=== PATIENT | male | born 1960 | race Caucasian/White ===

== ENCOUNTER → 2020-02-16 | Outpatient (CLI) | payer MEDICARE ==
--- NOTE | 2020-02-16 15:44 | Diagnostic Imaging Report ---
INDICATION: Generalized abdominal pain. COMPARISON: None. FINDINGS: Supine and upright views the abdomen demonstrate nonobstructive small bowel gas pattern. Mild amount of air and stool are seen scattered throughout the colon. No abnormal air-fluid levels or large collection of free intraperitoneal air is seen. No abnormal extraosseous calcifications or radiopaque foreign bodies are identified. Bony structures are age-appropriate. Postsurgical changes of the lumbosacral spine are noted. IMPRESSION: 1. Nonobstructive small bowel gas pattern. Dictated by: Dictated on workstation # [id number]
== END ==
LOC: RAD FS 14:49
PROVIDERS: ATTEND Nurse Practitioner Family
DX: R10.84 Generalized abdominal pain (principal); R10.13 Epigastric pain
CPT/HCPCS: 74019

== ENCOUNTER 2023-03-30 10:38 | Emergency (ER) | payer MEDICARE ==
[~2023-03-30] VITALS: Ht 185 cm; Wt 79.9 kg
[2023-03-30 10:51] VITALS: BP 175/105
[2023-03-30 10:58] LABS: BASOPHILS % (AUTO) 1 % (0-10); EOSINOPHILS # (AUTO) 0.1 10^3/uL (0.0-0.3); EOSINOPHILS % (AUTO) 2 % (0-10); HEMATOCRIT 51 % (40-54); HEMOGLOBIN 17.4 g/dL (13.3-17.7); LYMPHOCYTES % (AUTO) 15 % (12-44); MEAN CORPUSCULAR HEMOGLOBIN 33 pg (25-34); MEAN CORPUSCULAR HGB CONC 34 g/dL (32-36); MEAN CORPUSCULAR VOLUME 97 fL (80-99); MEAN PLATELET VOLUME 9.8 fL (9.0-12.2); MONOCYTES # (AUTO) 0.8 10^3/uL (0.0-1.0); MONOCYTES % (AUTO) 12 % (0-12); NEUTROPHILS # (AUTO) 4.8 10^3/uL (1.8-7.8); NEUTROPHILS % (AUTO) 70 % (42-75); PLATELET COUNT 215 10^3/uL (130-400); WHITE BLOOD COUNT 6.8 10^3/uL (4.3-11.0)
[2023-03-30 10:59] LABS: BILIRUBIN,URINE NEGATIVE (NEGATIVE); CLARITY,URINE CLEAR; COLOR,URINE YELLOW; GLUCOSE, URINE (UA) NEGATIVE (NEGATIVE); KETONES,URINE 1+ (NEGATIVE); LEUKOCYTE ESTERASE ,URINE NEGATIVE (NEGATIVE); NITRITE,URINE NEGATIVE (NEGATIVE); PROTEIN,URINE NEGATIVE (NEGATIVE)
[2023-03-30 11:08] LABS: BACTERIA,URINE NEGATIVE /HPF; SQUAMOUS EPITHELIAL CELL,UR RARE /HPF
--- NOTE | 2023-03-30 11:09 | ED Abdominal Pain ---
General Chief Complaint: Abdominal/GI Problems Stated Complaint: ABD PAIN Nursing Triage Note: Patient has presented to ER with cc of upper left side abd pain for the last 2 weeks and getting worse. He reports some nausea. He has tried TUMS, peptobismol, and aleeve for the pain. Source of Information: Patient, Family () Exam Limitations: No Limitations History of Present Illness Date Seen by Provider: Mar 30, 2023 Time Seen by Provider: 10:47 Initial Comments 63-year-old male patient with history of hypertension and chronic back pain presented POV with his with complaining of abdominal pain. Patient complaining of intermittent episodes of left upper abdominal pain as a sharp pain for the last 2 to 4 weeks that getting constant for the last 1 week and rated his pain 5/10. Patient complaining of nausea without vomiting with anorexia and stated he lost more than 20 pounds since January. Patient denies fever and chills, urinary symptoms, diarrhea and constipation. Patient took Tums and Pepto-Bismol and few Aleve without improvement of his pain. Patient did not seek medical attention for his pain. Patient stated he drinks 6 cans of beer every day for many years and using marijuana for his chronic back pain. Allergies and Home Medications Allergies Coded Allergies: aspirin (Verified Allergy, Unknown, 03/30/23) Patient Home Medication List Home Medication List Reviewed: Yes Hydroxyzine HCl (Hydroxyzine HCl) 25 Mg Tablet, 25 MG PO qhs PRN for anxiety Prescribed by: Amita lind on 03/30/23 1240 Ondansetron (Ondansetron Odt) 4 Mg Tab.rapdis, 4 MG PO TID PRN for NAUSEA-1ST LINE Prescribed by: Amita lind on 03/30/23 1249 Sucralfate (Sucralfate) 1 Gram Tablet, 1 GM PO ACHS Prescribed by: Amita lind on 03/30/23 1240 Review of Systems Review of Systems Constitutional: see HPI EENTM: No Symptoms Reported Respiratory: No Symptoms Reported Cardiovascular: No Symptoms Reported Gastrointestinal: See HPI Genitourinary: No Symptoms Reported Musculoskeletal: no symptoms reported Skin: no symptoms reported Psychiatric/Neurological: No Symptoms Reported Endocrine: No Symptoms Reported Hematologic/Lymphatic: No Symptoms Reported All Other Systems Reviewed Negative Unless Noted: Yes Past Kahocbb-Cipqfw-Bysark Hx Patient Social History Tobacco Use?: No Substance use?: Yes Substance type: Marijuana Substance frequency: Daily Alcohol Use?: Yes Alcohol type: Beer Alcohol Frequency: Daily Physical Exam Vital Signs Vital Signs - First Documented 03/30/23 10:51 Temp 36.1 Pulse 107 Resp 18 B/P (MAP) 175/105 (128) Pulse Ox 97 O2 Delivery Room Air Capillary Refill : Height/Weight/BMI Height: '" Weight: lbs. oz. kg; 23.00 BMI Method: General Appearance: WD/WN, mild distress HEENT: PERRL/EOMI, normal ENT inspection, pharynx normal Neck: non-tender, full range of motion, supple, normal inspection Respiratory: chest non-tender, lungs clear, normal breath sounds, no respiratory distress, no accessory muscle use Cardiovascular: normal peripheral pulses, regular rate, rhythm, no edema, no gallop, no JVD, no murmur Peripheral Pulses: 2+ Carotid (R), 2+ Carotid (L), 2+ Femoral (R), 2+ Femoral (L), 2+ Dorsalis Pedis (R), 2+ Left Dors-Pedis (L), 2+ Radial Pulses (R), 2+ Radial Pulses (L) Gastrointestinal: normal bowel sounds, non tender, soft, no organomegaly, no pulsatile mass, guarding (Left upper quad) Rectal: normal exam Genital/Rectal: normal genital exam Extremities: normal range of motion, non-tender, normal inspection, no pedal edema, no calf tenderness, normal capillary refill, pelvis stable Back: normal inspection, no CVA tenderness Neurologic/Psychiatric: no motor/sensory deficits, alert, normal mood/affect, oriented x 3 Skin: normal color, warm/dry Lymphatic: no adenopathy Progress/Results/Core Measures Results/Orders Lab Results Laboratory Tests Test 03/30/23 10:45 Range/Units White Blood Count 6.8 4.3-11.0 10^3/uL Red Blood Count 5.31 4.30-5.52 10^6/uL Hemoglobin 17.4 13.3-17.7 g/dL Hematocrit 51 40-54 % Mean Corpuscular Volume 97 80-99 fL Mean Corpuscular Hemoglobin 33 25-34 pg Mean Corpuscular Hemoglobin Concent 34 32-36 g/dL Red Cell Distribution Width 12.3 10.0-14.5 % Platelet Count 215 130-400 10^3/uL Mean Platelet Volume 9.8 9.0-12.2 fL Immature Granulocyte % (Auto) 0 % Neutrophils (%) (Auto) 70 42-75 % Lymphocytes (%) (Auto) 15 12-44 % Monocytes (%) (Auto) 12 0-12 % Eosinophils (%) (Auto) 2 0-10 % Basophils (%) (Auto) 1 0-10 % Neutrophils # (Auto) 4.8 1.8-7.8 10^3/uL Lymphocytes # (Auto) 1.0 1.0-4.0 10^3/uL Monocytes # (Auto) 0.8 0.0-1.0 10^3/uL Eosinophils # (Auto) 0.1 0.0-0.3 10^3/uL Basophils # (Auto) 0.0 0.0-0.1 10^3/uL Immature Granulocyte # (Auto) 0.0 0.0-0.1 10^3/uL Urine Color YELLOW Urine Clarity CLEAR Urine pH 6.0 5-9 Urine Specific [place] <=1.005 1.016-1.022 Urine Protein NEGATIVE NEGATIVE Urine Glucose (UA) NEGATIVE NEGATIVE Urine Ketones 1+ H NEGATIVE Urine Nitrite NEGATIVE NEGATIVE Urine Bilirubin NEGATIVE NEGATIVE Urine Urobilinogen 0.2 < = 1.0 MG/DL Urine Leukocyte Esterase NEGATIVE NEGATIVE Urine RBC (Auto) NEGATIVE NEGATIVE Urine RBC NONE /HPF Urine WBC NONE /HPF Urine Squamous Epithelial Cells RARE /HPF Urine Crystals NONE /LPF Urine Bacteria NEGATIVE /HPF Urine Casts NONE /LPF Urine Mucus NEGATIVE /LPF Urine Culture Indicated NO Sodium Level 138 135-145 MMOL/L Potassium Level 4.1 3.6-5.0 MMOL/L Chloride Level 95 L 98-107 MMOL/L Carbon Dioxide Level 21 21-32 MMOL/L Anion Gap 22 H 5-14 MMOL/L Blood Urea Nitrogen 7 7-18 MG/DL Creatinine 0.67 0.60-1.30 MG/DL Estimat Glomerular Filtration Rate 106 BUN/Creatinine Ratio 10 Glucose Level 116 H 70-105 MG/DL Calcium Level 10.1 8.5-10.1 MG/DL Corrected Calcium 8.5-10.1 MG/DL Total Bilirubin 1.8 H 0.1-1.0 MG/DL Aspartate Amino Transf (AST/SGOT) 90 H 5-34 U/L Alanine Aminotransferase (ALT/SGPT) 91 H 0-55 U/L Alkaline Phosphatase 93 40-136 U/L Total Protein 8.1 6.4-8.2 GM/DL Albumin 5.2 H 3.2-4.5 GM/DL Lipase 63 8-78 U/L Urine Opiates Screen NEGATIVE NEGATIVE Urine Oxycodone Screen NEGATIVE NEGATIVE Urine Methadone Screen NEGATIVE NEGATIVE Urine Propoxyphene Screen NEGATIVE NEGATIVE Urine Barbiturates Screen NEGATIVE NEGATIVE Ur Tricyclic Antidepressants Screen NEGATIVE NEGATIVE Urine Phencyclidine Screen NEGATIVE NEGATIVE Urine Amphetamines Screen NEGATIVE NEGATIVE Urine Methamphetamines Screen NEGATIVE NEGATIVE Urine Benzodiazepines Screen NEGATIVE NEGATIVE Urine Cocaine Screen NEGATIVE NEGATIVE Urine Cannabinoids Screen POSITIVE H NEGATIVE Serum Alcohol < 10 <10 MG/DL My Orders Orders - AMITA LIND MD Comprehensive Metabolic Panel (03/30/23 10:50) Lipase (03/30/23 10:50) Ua Culture If Indicated (03/30/23 10:50) Ed Iv/Invasive Line Start (03/30/23 10:50) Cbc With Automated Diff (03/30/23 10:50) Alcohol (03/30/23 10:50) Drug Screen Stat (Urine) (03/30/23 10:50) Ondansetron Injection (Zofran Injectio (03/30/23 11:15) Pantoprazole Injection (Protonix Injecti (03/30/23 11:15) Ct Abdomen/Pelvis W (03/30/23 11:02) Iohexol Injection (Omnipaque 350 Mg/Ml 1 (03/30/23 11:30) Received Contrast (Hold Metformin- Contr (03/30/23 11:30) Ns (Ivpb) (Sodium Chloride 0.9% Ivpb Bag (03/30/23 11:30) Medications Given in ED Current Medications Medications Dose Ordered Sig/Liliana Route Start Time Stop Time Status Last Admin Dose Admin Iohexol 100 ml ONCE ONCE IV 03/30/23 11:30 03/30/23 11:31 DC 03/30/23 11:43 80 ML Ondansetron HCl 4 mg ONCE ONCE IVP 03/30/23 11:15 03/30/23 11:16 DC 03/30/23 11:08 4 MG Pantoprazole 40 mg ONCE ONCE IV 03/30/23 11:15 03/30/23 11:16 DC 03/30/23 11:08 40 MG Sodium Chloride 100 ml ONCE ONCE IV 03/30/23 11:30 03/30/23 11:31 DC 03/30/23 11:43 100 ML Vital Signs/I&O 03/30/23 10:51 Temp 36.1 Pulse 107 Resp 18 B/P (MAP) 175/105 (128) Pulse Ox 97 O2 Delivery Room Air Blood Pressure Mean: 128 Progress Progress Note : Progress Note 63-year-old male patient with history of alcohol abuse and complaining of left upper quadrant pain for several weeks. Patient had unremarkable physical exam except for anxiety and elevation of blood pressure at arrival to ER that gradually decreased. CBC and CMP and lipase and UA and UDS and alcohol level was ordered and reviewed by me and was unremarkable except for mild elevation of liver function test that patient stated he had the same problem previously. CT abdomen pelvis was unremarkable except for gallstones without cholecystitis and distended bladder. Bladder scan showed 200 mL of urine in the bladder. Patient did not have urinary frequency and dysuria and nocturia. Patient had history of back surgery and his distended bladder could be related to his surgery. Patient treated with Zofran and Protonix in ER and did not want to have pain medication. Patient advised to follow-up with primary care physician or Dr. Perdomo for possible EGD for evaluation of peptic ulcer disease and also follow-up for gallstones. Patient advised to avoid of eating greasy food. Patient mentioned that he is eating only once a day and advised to eat frequently and try to quit drinking alcohol. Patient advised to return to ER as needed. Diagnostic Imaging Diagonstic Imaging: CT Plain Films/CT/US/NM/MRI: other (CT abdomen pelvis with IV contrast) Comments CT abdomen pelvis with IV contrast reviewed by me and interpreted by radiologist and showed: [facility] [place] NAME: KENNA GUTIÉRREZ [facility] REC#: [id number] PT STATUS: REG ER : 1960 PHYSICIAN: AMITA LIND MD ADMIT DATE: 03/30/23/ER FS Draft Date of Exam:03/30/23 CT ABDOMEN/PELVIS W INDICATION: Left upper quadrant pain. TECHNIQUE: Multiple contiguous axial images were obtained through the abdomen and pelvis after administration of intravenous contrast. Auto Exposure Controls were utilized during the CT exam to meet ALARA standards for radiation dose reduction. All CT scans use one or more of the following dose optimizing techniques: automated exposure control, MA and/or KvP adjustment based on patient size and exam type or iterative reconstruction. COMPARISON: There is no previous study for comparison. FINDINGS: The visualized portions of the lung bases are clear. There were no pleural fluid collections. There is no free intraperitoneal air. There are postop changes in the lumbar spine with fusion from L4 through S1. The liver shows diffuse fatty infiltration without focal lesion. There are numerous gallstones in the gallbladder. The spleen, adrenals, and pancreas are normal. The kidneys bilaterally show no mass or intrarenal calculi. There is moderate prominence of the renal pelves on both sides without caliectasis. There is no retroperitoneal mass or adenopathy. There is no ascites or overt bowel obstruction. There is marked distention of the urinary bladder. IMPRESSION: Marked distention of the urinary bladder, bladder diameter on the sagittal view was nearly 20 cm. There is moderate prominence of the renal pelves, without caliectasis. There is diffuse fatty infiltration of the liver. There are numerous gallstones in the gallbladder. Dictated on workstation # [id number] Dict: 03/30/23 1157 Trans: 03/30/23 1205 [id number] [id number] Interpreted by: TEAGAN GOTTI MD Electronically signed by: Departure Impression Primary Impression: Left upper quadrant abdominal pain Additional Impressions: Cholelithiasis Qualified Codes: K80.21 - Calculus of gallbladder without cholecystitis with obstruction Distended bladder Alcohol abuse Elevated liver function tests Anxiety Disposition: 01 HOME, SELF-CARE Condition: Improved Departure-Patient Inst. Decision time for Depature: 12:32 Referrals: ELIJAH SWARTZ APRN (PCP) Primary Care Physician [facility] (Family) Primary Care Physician Patient Instructions: Peptic Ulcers (DC), Anxiety, Adult (DC), Abdominal Pain, Adult ED, Gallstones ED, Alcohol Use Disorder ED, Stomach ache and stomach upset Add. Discharge Instructions: Eat a small portion of food frequently Do not eat greasy food Follow-up with Dr. Aris Perdomo surgeon at [place] for possible EGD/endoscopy for peptic ulcer disease, call [phone] to make an appointment Follow-up with your primary care physician in 2 to 3 days Take [id number] Aleve or ibuprofen as needed for pain, do not take acetaminophen Return to ER as needed All discharge instructions reviewed with patient and/or family. Voiced understanding. Scripts Ondansetron (Ondansetron Odt) 4 Mg Tab.rapdis 4 MG PO TID PRN for NAUSEA-1ST LINE, #20 TAB Prov: AMITA LIND MD 03/30/23 Hydroxyzine HCl (Hydroxyzine HCl) 25 Mg Tablet 25 MG PO qhs PRN for anxiety, #14 TAB Prov: AMITA LIND MD 03/30/23 Sucralfate (Sucralfate) 1 Gram Tablet 1 GM PO ACHS, #56 TAB 1 Refill Chew tablet to a slurry and then swallow Prov: AMITA LIND MD 03/30/23 AMITA LIND MD Mar 30, 2023 11:09
[2023-03-30] MEDS ORDERED: ONDANSETRON 4 MG/2 ML (SDV) Z0FRAN IVP ONE (11:15)
[2023-03-30] MEDS ORDERED: PANTOPRAZOLE 40 MG (PROTONIX) VIAL IV ONE (11:15)
[2023-03-30 11:16] LABS: AMPHETAMINE SCREEN, URINE NEGATIVE (NEGATIVE); BARBITURATE SCREEN URINE NEGATIVE (NEGATIVE); BENZODIAZEPINES SCREEN URINE NEGATIVE (NEGATIVE); CANNABINOID SCREEN, URINE POSITIVE (NEGATIVE); COCAINE SCREEN URINE NEGATIVE (NEGATIVE); METHADONE STAT NEGATIVE (NEGATIVE); OPIATE SCREEN URINE NEGATIVE (NEGATIVE); OXYCODONE STAT NEGATIVE (NEGATIVE); PROPOXYPHENE STAT NEGATIVE (NEGATIVE); TRICYCLIC ANTIDEPRESSANTS SCRE NEGATIVE (NEGATIVE)
[2023-03-30 11:17] LABS: ALKALINE PHOSPHATASE 93 U/L (40-136); BILIRUBIN,TOTAL 1.8 MG/DL (0.1-1.0); BUN/CREATININE RATIO 10; CALCIUM 10.1 MG/DL (8.5-10.1); CARBON DIOXIDE 21 MMOL/L (21-32); CHLORIDE 95 MMOL/L (98-107); CREATININE SERUM 0.67 MG/DL (0.60-1.30); GFR ESTIMATED 106; GLUCOSE 116 MG/DL (70-105); POTASSIUM 4.1 MMOL/L (3.6-5.0); SODIUM 138 MMOL/L (135-145)
[2023-03-30 11:18] LABS: ALANINE AMINOTRANSFERASE 91 U/L (0-55); ALBUMIN 5.2 GM/DL (3.2-4.5); LIPASE 63 U/L (8-78); TOTAL PROTEIN 8.1 GM/DL (6.4-8.2)
[2023-03-30] MEDS ORDERED: IOHEXOL 350 MG/ML 100 ML (OMNIPAQUE 350) VIAL IV ONE (11:30)
[2023-03-30] MEDS ORDERED: HOLD METFORMIN - RECEIVED CONTRAST 20 ML VIAL IV SCH (11:30)
[2023-03-30] MEDS ORDERED: NS 100 ML (IVPB) BAG IV ONE (11:30)
--- NOTE | 2023-03-30 12:06 | Diagnostic Imaging Report ---
INDICATION: Left upper quadrant pain. TECHNIQUE: Multiple contiguous axial images were obtained through the abdomen and pelvis after administration of intravenous contrast. Auto Exposure Controls were utilized during the CT exam to meet ALARA standards for radiation dose reduction. All CT scans use one or more of the following dose optimizing techniques: automated exposure control, MA and/or KvP adjustment based on patient size and exam type or iterative reconstruction. COMPARISON: There is no previous study for comparison. FINDINGS: The visualized portions of the lung bases are clear. There were no pleural fluid collections. There is no free intraperitoneal air. There are postop changes in the lumbar spine with fusion from L4 through S1. The liver shows diffuse fatty infiltration without focal lesion. There are numerous gallstones in the gallbladder. The spleen, adrenals, and pancreas are normal. The kidneys bilaterally show no mass or intrarenal calculi. There is moderate prominence of the renal pelves on both sides without caliectasis. There is no retroperitoneal mass or adenopathy. There is no ascites or overt bowel obstruction. There is marked distention of the urinary bladder. IMPRESSION: Marked distention of the urinary bladder, bladder diameter on the sagittal view was nearly 20 cm. There is moderate prominence of the renal pelves, without caliectasis. There is diffuse fatty infiltration of the liver. There are numerous gallstones in the gallbladder. Dictated by: Dictated on workstation # [id number]
[2023-03-30] MEDS ORDERED: HYDR-700 PO (12:40)
[2023-03-30] MEDS ORDERED: SUCR1TAB PO (12:40)
[2023-03-30] MEDS ORDERED: ONDA4TAB11 PO (12:49)
== END 2023-03-30 12:45 | disposition home or self-care (01) ==
LOC: EDUNIT# 10:38 → ER FS 10:39
DX: K80.20 Calculus of gallbladder without cholecystitis without obstruction (principal); R79.89 Other specified abnormal findings of blood chemistry; N32.89 Other specified disorders of bladder; F41.9 Anxiety disorder, unspecified; F10.10 Alcohol abuse, uncomplicated; Y90.0 Blood alcohol level of less than 20 mg/100 ml
CPT/HCPCS: 36415; 74177; 80053; 80306; 81000; 83690; 85025; 99284; G0480; 80320; Q9967

== ENCOUNTER → 2023-07-07 | Outpatient (CLI) | payer MEDICARE ==
[~2023-07-07] MED LIST: HYDR-700 PO; ONDA4TAB11 PO; SUCR1TAB PO
--- NOTE | 2023-07-07 11:04 | Diagnostic Imaging Report ---
PROCEDURE: CT maxillofacial without contrast. TECHNIQUE: Multiple contiguous axial images were obtained through the facial bones without the use of intravenous contrast. Auto Exposure Controls were utilized during the CT exam to meet ALARA standards for radiation dose reduction. INDICATION: Chronic sinusitis and left otitis Globes are intact. Medial canthal calcifications are seen within the orbits bilaterally however no intraorbital inflammation or fluid collection is seen. Temporomandibular joints are intact. The frontal sinuses are clear bilaterally. There is mural thickening within the left sphenoid sinus. Otherwise paranasal sinuses are clear without evidence of air-fluid level. Bilateral mastoid air cells are also clear. There is thickening of the tympanic membranes, bilaterally with adjacent fluid, debris or skin thickening adjacent to the right tympanic membrane. There may be minimal membrane thickening within the middle ear cavity on the left. No air-fluid levels identified and there is no evidence of bone destruction. There is no evidence of significant nasopharyngeal inflammation or parapharyngeal mass or fluid collection. IMPRESSION: Very mild membrane thickening in the left middle ear cavity without air-fluid level or bone destruction. There is also bilateral tympanic membrane thickening with greater involvement on the right. Dictated by: Dictated on workstation # [id number]
== END ==
LOC: RAD FS 09:17
PROVIDERS: ATTEND Registered Nurse Emergency
DX: H73.893 Other specified disorders of tympanic membrane, bilateral (principal); I10 Essential (primary) hypertension; G62.9 Polyneuropathy, unspecified; F10.20 Alcohol dependence, uncomplicated; R94.5 Abnormal results of liver function studies; J32.8 Other chronic sinusitis
CPT/HCPCS: 70486